=== PATIENT | female | born 1975 | race Caucasian/White ===

== ENCOUNTER → 2018-02-03 | Outpatient (CLI) | payer OTHER ==
[~2018-02-03] MED LIST: ALBU4 PO; Prednisone20 MG PO; SERT25 PO; Ultram50 MG PO; Veetids 500500 MG PO
== END ==
LOC: LAB SHORT 15:30 → LAB 15:30
PROVIDERS: Nurse Practitioner Family
DX: Z01.419 Encounter for gynecological examination (general) (routine) without abnormal findings (principal)
CPT/HCPCS: G0145

== ENCOUNTER → 2018-09-29 | Outpatient (CLI) | payer OTHER | END | disposition home or self-care (01) | LOC: LAB SHORT 07:12 → PLD 07:12 | DX: R87.810 Cervical high risk human papillomavirus (HPV) DNA test positive (principal); R87.612 Low grade squamous intraepithelial lesion on cytologic smear of cervix (LGSIL) | CPT/HCPCS: 88305 ==

== ENCOUNTER → 2019-10-27 | Outpatient (CLI) | payer OTHER ==
[2019-11-02 15:10] LABS: HPV 16 Negative (Negative); HPV 18 Negative (Negative); HPV OTHER HR TYPES Negative (Negative)
== END | disposition home or self-care (01) ==
LOC: LAB SHORT 09:00 → LAB 09:00
PROVIDERS: Nurse Practitioner Family
DX: R87.810 Cervical high risk human papillomavirus (HPV) DNA test positive (principal); Z87.42 Personal history of other diseases of the female genital tract
CPT/HCPCS: 87624; G0145

== ENCOUNTER → 2019-11-14 | Outpatient (CLI) | payer OTHER | LOC: LAB 13:33 → LAB SHORT 13:33 | DX: D51.8 Other vitamin B12 deficiency anemias (principal) | CPT/HCPCS: 82607; 82746 ==

== ENCOUNTER → 2019-12-26 | Outpatient (CLI) | payer OTHER | END | disposition home or self-care (01) | LOC: LAB EV 12:30 → LAB SHORT 12:30 | DX: J02.9 Acute pharyngitis, unspecified (principal) | CPT/HCPCS: 87081 ==

== ENCOUNTER 2020-11-18 17:00 | Emergency (ER) | payer OTHER ==
[~2020-11-18] VITALS: Ht 170.2 cm; Wt 91.6 kg
== END 2020-11-18 18:00 | disposition home or self-care (01) ==
LOC: ER 17:00
DX: M25.462 Effusion, left knee (principal); Z79.52 Long term (current) use of systemic steroids; Z79.899 Other long term (current) drug therapy; Z88.0 Allergy status to penicillin; Z88.8 Allergy status to other drugs, medicaments and biological substances
CPT/HCPCS: 73564; 99283-25; A9270-GY

== ENCOUNTER 2023-09-22 18:22 | Inpatient (IN) | payer OTHER ==
[~2023-09-22] VITALS: Ht 170.2 cm; Wt 96.6 kg
[2023-09-22 19:27] LABS: BASOPHILS ABSOLUTE AUTO 0.05 K/mm3 (0.00-0.23); BASOPHILS PERCENT AUTO 0 % (0-2); EOSINOPHILS ABSOLUTE AUTO 0.06 K/mm3 (0.00-0.68); EOSINOPHILS PERCENT AUTO 1 % (0-6); Hematocrit 38.5 % (33.0-51.0); Hemoglobin 11.8 g/dL (11.5-16.0); IMMATURE GRAN ABSOLUTE AUTO 0.05 K/mm3 (0.00-0.10); IMMATURE GRAN PERCENT AUTO 0 % (0-1); LYMPHOCYTES PERCENT AUTO 17 % (21-46); MONOCYTES ABSOLUTE AUTO 1.18 K/mm3 (0.16-1.47); MONOCYTES PERCENT AUTO 9 % (4-13); Mean Corpuscular HGB 26.8 pg (26.0-34.0); Mean Corpuscular HGB Conc 30.6 g/dL (31.5-36.5); Mean Corpuscular Volume 88 fL (80-100); Mean Platelet Volume 9.4 fL (9.1-12.4); NEUTROPHILS ABSOLUTE AUTO 9.55 K/mm3 (1.96-9.15); NEUTROPHILS PERCENT AUTO 73 % (41-73); Platelet Count 527 K/mm3 (150-400); RDW Coefficient Variation 15.6 % (11.7-14.2); RDW Standard Deviation 50.3 fL (35.1-46.3); White Blood Cell Count 13.09 K/mm3 (4.00-11.30)
[2023-09-22 19:48] LABS: Alanine Aminotransfer (ALT/SGP 18 U/L (12-78); Albumin/Globulin Ratio 0.6 (0.8-1.8); Alk Phos 95 U/L (50-136); Anion Gap Unable to Calculate mmol/L (6-16); Aspartate Aminotrans (AST/SGOT 8 U/L (12-37); Bilirubin, Total 0.2 mg/dL (0.1-1.0); Blood Urea Nitrogen 11 mg/dL (8-24); Bun/Creatinine Ratio 17.3 (12.0-20.0); CO2, Blood 31 mmol/L (21-32); Calcium, Blood 8.9 mg/dL (8.5-10.1); Chloride, Blood 110 mmol/L (98-108); Creatinine, Blood 0.64 mg/dL (0.40-1.00); Globulin, Blood 4.8 g/dL (2.2-4.0); Glomerular Filtration Rate 111 (60-); Glucose, Blood 103 mg/dL (70-99); Potassium, Blood 3.8 mmol/L (3.5-5.5); Sodium, Blood 140 mmol/L (136-145); Total Protein, Blood 7.8 g/dL (6.4-8.2)
[2023-09-22] MEDS ORDERED: Dexamethasone Sod Phos 10 MG/ML 1ML VIAL IV ONE (21:00)
[2023-09-22] MEDS ORDERED: FentaNYL Citrate 50 MCG/ML 2 ML Injection IV ONE (21:00)
[2023-09-22] MEDS ORDERED: Ondansetron HCl 2 MG / ML 2ML Vial IV ONE (21:00)
[2023-09-22] MEDS ORDERED: Benzocaine Oral Spray 0.5ML UD MT ONE (21:40)
[2023-09-22] MEDS ORDERED: Ampicillin Sod/Sulbactam Sod 3 GM in NS 100 ML IV ONE (21:45)
[2023-09-22] MEDS ORDERED: FLU VACC QS2023-24(6MOS UP)/PF 60 MCG/0.5 ML SYRINGE IM ONE (22:20)
[2023-09-22] MEDS ORDERED: Ondansetron HCl 2 MG / ML 2ML Vial IV PRN (22:25)
[2023-09-22] MEDS ORDERED: FentaNYL Citrate 50 MCG/ML 2 ML Injection IV PRN (22:25)
[2023-09-22] MEDS ORDERED: AMOX-CLAV 875-1 EAC5 PO (22:47)
[2023-09-22] MEDS ORDERED: Trazodone HCl300 MG PO (22:48)
[2023-09-22] MEDS ORDERED: ESCI20 PO (22:48)
[2023-09-22] MEDS ORDERED: NS 1,000 ML IV ONE (23:20)
[2023-09-23 00:30] VITALS: BP 146/95
[2023-09-23] MEDS ORDERED: TraZODone HCl 100 MG Tab PO ONE (00:50)
[2023-09-23] MEDS ORDERED: NS 100 ML IV ONE (01:22)
[2023-09-23] MEDS ORDERED: Piperacillin/Tazobactam Sod 4.5 GM in NS 100 ML IV SCH (02:00)
[2023-09-23 03:54] VITALS: BP 120/84
[2023-09-23 04:47] LABS: BASOPHILS ABSOLUTE AUTO 0.02 K/mm3 (0.00-0.23); BASOPHILS PERCENT AUTO 0 % (0-2); EOSINOPHILS PERCENT AUTO 0 % (0-6); Hematocrit 34.8 % (33.0-51.0); IMMATURE GRAN ABSOLUTE AUTO 0.06 K/mm3 (0.00-0.10); IMMATURE GRAN PERCENT AUTO 0 % (0-1); LYMPHOCYTES ABSOLUTE AUTO 0.98 K/mm3 (0.84-5.20); LYMPHOCYTES PERCENT AUTO 7 % (21-46); MONOCYTES ABSOLUTE AUTO 0.19 K/mm3 (0.16-1.47); MONOCYTES PERCENT AUTO 1 % (4-13); Mean Corpuscular HGB 27.1 pg (26.0-34.0); Mean Corpuscular HGB Conc 31.6 g/dL (31.5-36.5); Mean Corpuscular Volume 86 fL (80-100); Mean Platelet Volume 9.5 fL (9.1-12.4); NEUTROPHILS ABSOLUTE AUTO 12.56 K/mm3 (1.96-9.15); NEUTROPHILS PERCENT AUTO 91 % (41-73); Platelet Count 479 K/mm3 (150-400); RDW Coefficient Variation 15.5 % (11.7-14.2); RDW Standard Deviation 48.8 fL (35.1-46.3); Red Blood Cell Count 4.06 M/mm3 (3.80-5.20); White Blood Cell Count 13.81 K/mm3 (4.00-11.30)
[2023-09-23 05:12] LABS: Albumin, Blood 2.7 g/dL (3.4-5.0); Albumin/Globulin Ratio 0.6 (0.8-1.8); Bilirubin, Total 0.3 mg/dL (0.1-1.0); Bun/Creatinine Ratio 16.2 (12.0-20.0); Calcium, Blood 8.9 mg/dL (8.5-10.1); Creatinine, Blood 0.56 mg/dL (0.40-1.00); Globulin, Blood 4.5 g/dL (2.2-4.0); Potassium, Blood 4.4 mmol/L (3.5-5.5); Total Protein, Blood 7.2 g/dL (6.4-8.2)
--- NOTE | 2023-09-23 06:08 | NUR ---
Rn summary: Patient was admitted to room 302 from the ED. Patient is alert and oriented x4. Patient is here for Rt sided peritonsillar abscess/ strep which was needle aspirated in the ED for 9 ml of pus. Patient reports moderate relief afterward. Pt medicated x2 with fentanyl 50mcg with pain level from 9/10 to 4/10. Patient did rest for a couple of hours after trazadone 300mg given. Patient is independant in room. Is able to take sips of water. Meds were crushed in applesauce. Patient calls appropriately. vital signs are stable. Will continue to monitor.
[2023-09-23 07:16] VITALS: BP 130/86
[2023-09-23] MEDS ORDERED: Citalopram Hydrobromide 20 MG Tab PO SCH (09:00)
[2023-09-23] MEDS ORDERED: Acetaminophen 325 MG TABLET PO PRN (11:50)
[2023-09-23] MEDS ORDERED: Piperacillin/Tazobactam Sod 4.5 GM ONE (12:04)
[2023-09-23] MEDS ORDERED: Ventolin/Prove6.7 GM INH (12:27)
[2023-09-23] MEDS ORDERED: Albuterol HFA200 ACT/6.7 GM INH INH PRN (12:35)
[2023-09-23 16:03] VITALS: BP 134/94
--- NOTE | 2023-09-23 17:28 | NUR ---
SHIFT SUMMARY PT AOX4, INDEPENDENT IN THE ROOM. PAIN MANAGED PER THE EMAR. NO COMPLAINTS FROM THE PT THIS SHIFT OTHER THAN ABOUT PAIN. REPORT GIVEN TO ADRIAN LUU, THIS NURSE IS GOING HOME EARLY. CALL LIGHT WITHIN REACH, BED IN THE LOWEST POSITION. WILL REPORT TO ONCOMING NURSE.
--- NOTE | 2023-09-23 18:37 | NUR ---
End of shift note: Pt continues on the medical floor, recieving antibiotics throughout the shift. PRN Fentynl has been given ~q6/hr for pain which has been effective. PRN Tylenol has been effective for pain aswell. Pt was switched from NPO to soft diet after lunch. Pt alert and independent.
[2023-09-23 19:08] VITALS: BP 134/95
[2023-09-23] MEDS ORDERED: TraZODone HCl 100 MG Tab PO SCH (21:00)
--- NOTE | 2023-09-24 04:05 | NUR ---
PT A&O x4, VSS, AFEBRILE, PT ON RA. PT ADMITTED FOR ABSCESS LOCATED ON R SIDE OF TONSILS, PERITONSILLAR ABSCESS. PT PLEASANT AND COOPERATIVE WITH CARE PROVIDED. PT ABLE TO MAKE NEEDS KNOWN. PT UP AD CINDY, INDEPENDENT WITH ADL's. PT C/O PAIN TO R SIDE OF MOUTH. PAIN MANAGED WITH PRN IV FENTANYL ADMINISTERED x2. IV ABX HUNG. PT ABLE TO TOLERATE DINNER LAST NIGHT. NO C/O NAUSEA, NO DIFFICULTIES WITH BREATHING OR SWALLOWING. RESP RATE EVEN AND UNLABORED. MOUTH. PAIN MANAGED WITH PRN IV FENTANYL ADMINISTERED x2. IV ABX RUNNING. PT SLEPT ON AND OFF THROUGHOUT THE SHIFT. CALL LIGHT WITHIN REACH, WCTM.
[2023-09-24 04:14] VITALS: BP 125/84
[2023-09-24 05:22] LABS: BASOPHILS ABSOLUTE AUTO 0.05 K/mm3 (0.00-0.23); BASOPHILS PERCENT AUTO 1 % (0-2); EOSINOPHILS ABSOLUTE AUTO 0.15 K/mm3 (0.00-0.68); EOSINOPHILS PERCENT AUTO 2 % (0-6); IMMATURE GRAN ABSOLUTE AUTO 0.07 K/mm3 (0.00-0.10); IMMATURE GRAN PERCENT AUTO 1 % (0-1); LYMPHOCYTES PERCENT AUTO 30 % (21-46); MONOCYTES ABSOLUTE AUTO 0.75 K/mm3 (0.16-1.47); MONOCYTES PERCENT AUTO 8 % (4-13); Mean Corpuscular HGB Conc 31.3 g/dL (31.5-36.5); Mean Corpuscular Volume 86 fL (80-100); Mean Platelet Volume 9.8 fL (9.1-12.4); NEUTROPHILS ABSOLUTE AUTO 5.93 K/mm3 (1.96-9.15); NEUTROPHILS PERCENT AUTO 60 % (41-73); Platelet Count 471 K/mm3 (150-400); RDW Coefficient Variation 15.5 % (11.7-14.2); RDW Standard Deviation 48.9 fL (35.1-46.3); Red Blood Cell Count 3.71 M/mm3 (3.80-5.20); White Blood Cell Count 9.95 K/mm3 (4.00-11.30)
[2023-09-24 05:42] LABS: Bun/Creatinine Ratio 39.8 (12.0-20.0); Calcium, Blood 8.5 mg/dL (8.5-10.1); Creatinine, Blood 0.6 mg/dL (0.40-1.00); Potassium, Blood 3.8 mmol/L (3.5-5.5)
[2023-09-24 07:21] VITALS: BP 126/83
[2023-09-24] MEDS ORDERED: OxyCODONE HCL 5 MG TAB PO ONE (10:45)
--- NOTE | 2023-09-24 14:12 | NUR ---
DISCHARGE NOTE PT DISCHARGED TO HOME, PICKED UP BY HER MOTHER. IV REMOVED. DISCHARGE EDUCATION AND INFORMATION PROVIDED TO THE PT. MEDICATIONS FAXED TO THE PHARMACY OF HER CHOICE. PERSONAL BELONGINGS RETURNED.
== END 2023-09-24 13:17 | disposition home or self-care (01) | DRG 854 ==
LOC: ER 18:22 → MEDS 22:21 → ERHOLD 22:21 → MEDS 09-23 00:08 → ENPENDDIS 09-24 12:58 → MEDS 09-24 13:17
PROVIDERS: Internal Medicine; Student in an Organized Health Care Education/Training Program; ADMIT Internal Medicine
PROC: 0C9P3ZX Drainage of Tonsils, Percutaneous Approach, Diagnostic (ICD-10-PCS; principal; 2023-09-22)
PROC: 3E03329 Introduction of Other Anti-infective into Peripheral Vein, Percutaneous Approach (ICD-10-PCS; 2023-09-22)
DX: A41.9 Sepsis, unspecified organism (principal); J36 Peritonsillar abscess; D64.9 Anemia, unspecified; G47.30 Sleep apnea, unspecified; J45.909 Unspecified asthma, uncomplicated; Z79.899 Other long term (current) drug therapy; F90.9 Attention-deficit hyperactivity disorder, unspecified type; F31.9 Bipolar disorder, unspecified; E78.5 Hyperlipidemia, unspecified; F43.10 Post-traumatic stress disorder, unspecified; E53.8 Deficiency of other specified B group vitamins
CPT/HCPCS: 10160; 36415; 70491; 80048; 80053; 83880; 85025; 94640; 94664; 94760; 96365-59; 96375-59; 99284-25; A9270; J0295; J1100; J2405; J2543; J3010; J7030; Q9967

== ENCOUNTER 2024-06-09 08:47 | Emergency (ER) | payer OTHER ==
[~2024-06-09] VITALS: Ht 170.2 cm; Wt 86.6 kg
[~2024-06-09 08:47] MED LIST changes: +AMOX-CLAV 875-1 EAC5 PO; +ESCI20 PO; +Trazodone HCl300 MG PO; +Ventolin/Prove6.7 GM INH
[2024-06-09] MEDS ORDERED: Ketorolac Tromethamine 15mg Vial IV ONE (09:20)
[2024-06-09] MEDS ORDERED: Morphine Sulfate 4 MG/1 ML Injection IV ONE (09:45)
[2024-06-09] MEDS ORDERED: CefTRIAXone Sodium 2,000 MG in NS 100 ML IV ONE (09:50)
[2024-06-09] MEDS ORDERED: Benzocaine Oral Spray 0.5ML UD MT ONE (09:50)
[2024-06-09] MEDS ORDERED: Dexamethasone Sod Phos 10 MG/ML 1ML VIAL IV ONE (09:50)
[2024-06-09 10:05] LABS: BASOPHILS ABSOLUTE AUTO 0.06 K/mm3 (0.00-0.23); BASOPHILS PERCENT AUTO 0 % (0-2); EOSINOPHILS ABSOLUTE AUTO 0.09 K/mm3 (0.00-0.68); EOSINOPHILS PERCENT AUTO 1 % (0-6); Hematocrit 34.1 % (33.0-51.0); Hemoglobin 10.8 g/dL (11.5-16.0); IMMATURE GRAN ABSOLUTE AUTO 0.05 K/mm3 (0.00-0.10); IMMATURE GRAN PERCENT AUTO 0 % (0-1); LYMPHOCYTES ABSOLUTE AUTO 1.11 K/mm3 (0.84-5.20); LYMPHOCYTES PERCENT AUTO 8 % (21-46); MONOCYTES ABSOLUTE AUTO 1.37 K/mm3 (0.16-1.47); MONOCYTES PERCENT AUTO 9 % (4-13); Mean Corpuscular HGB 27.8 pg (26.0-34.0); Mean Corpuscular HGB Conc 31.7 g/dL (31.5-36.5); Mean Corpuscular Volume 88 fL (80-100); Mean Platelet Volume 10.1 fL (9.1-12.4); NEUTROPHILS ABSOLUTE AUTO 11.99 K/mm3 (1.96-9.15); NEUTROPHILS PERCENT AUTO 82 % (41-73); Platelet Count 336 K/mm3 (150-400); RDW Coefficient Variation 16.2 % (11.7-14.2); Red Blood Cell Count 3.89 M/mm3 (3.80-5.20); White Blood Cell Count 14.67 K/mm3 (4.00-11.30)
[2024-06-09] MEDS ORDERED: Ondansetron HCl 2 MG / ML 2ML Vial IV ONE (10:15)
[2024-06-09 10:26] LABS: Albumin, Blood 2.9 g/dL (3.4-5.0); Albumin/Globulin Ratio 0.7 (0.8-1.8); Bilirubin, Total 0.4 mg/dL (0.1-1.0); Bun/Creatinine Ratio 18.6 (12.0-20.0); C-REACTIVE PROTEIN, EXT RANGE 8.94 mg/dL (0.000-0.300); Calcium, Blood 8.4 mg/dL (8.5-10.1); Creatinine, Blood 0.59 mg/dL (0.40-1.00); Globulin, Blood 3.9 g/dL (2.2-4.0); Potassium, Blood 3.7 mmol/L (3.5-5.5); Total Protein, Blood 6.8 g/dL (6.4-8.2)
[2024-06-09] MEDS ORDERED: FentaNYL Citrate 50 MCG/ML 2 ML Injection IV ONE ×2 (13:05→14:50)
[2024-06-09] MEDS ORDERED: CLIN300 PO (14:29)
[2024-06-09] MEDS ORDERED: Percocet 5-3251 EACH PO ×2 (14:49→15:21)
[2024-06-09 15:26] VITALS: BP 157/92
== END 2024-06-09 15:26 | disposition home or self-care (01) ==
LOC: ER 08:47
PROVIDERS: Physician Assistant
DX: J36 Peritonsillar abscess (principal); J45.909 Unspecified asthma, uncomplicated; Z79.52 Long term (current) use of systemic steroids; Z79.899 Other long term (current) drug therapy
CPT/HCPCS: 42700; 70491; 80053; 85025; 86140; 96365-59; 96375-59; 96376-59; 99283-25; A9270; J0696; J1100; J1885; J2270; J2405; J3010; Q9967

== ENCOUNTER 2024-08-15 12:24 | Emergency (ER) | payer OTHER ==
[~2024-08-15] VITALS: Ht 170.2 cm; Wt 87.1 kg
[~2024-08-15 12:24] MED LIST changes: +CLIN300 PO; +Percocet 5-3251 EACH PO
[2024-08-15 13:24] LABS: BASOPHILS ABSOLUTE AUTO 0.08 K/mm3 (0.00-0.23); BASOPHILS PERCENT AUTO 1 % (0-2); EOSINOPHILS ABSOLUTE AUTO 0.09 K/mm3 (0.00-0.68); EOSINOPHILS PERCENT AUTO 1 % (0-6); Hemoglobin 10.9 g/dL (11.5-16.0); IMMATURE GRAN ABSOLUTE AUTO 0.05 K/mm3 (0.00-0.10); IMMATURE GRAN PERCENT AUTO 0 % (0-1); LYMPHOCYTES PERCENT AUTO 12 % (21-46); MONOCYTES ABSOLUTE AUTO 1.05 K/mm3 (0.16-1.47); MONOCYTES PERCENT AUTO 8 % (4-13); Mean Corpuscular HGB 26.8 pg (26.0-34.0); Mean Corpuscular HGB Conc 31.1 g/dL (31.5-36.5); Mean Corpuscular Volume 86 fL (80-100); Mean Platelet Volume 9.3 fL (9.1-12.4); NEUTROPHILS ABSOLUTE AUTO 9.66 K/mm3 (1.96-9.15); NEUTROPHILS PERCENT AUTO 78 % (41-73); Platelet Count 392 K/mm3 (150-400); RDW Coefficient Variation 16.5 % (11.7-14.2); RDW Standard Deviation 51.8 fL (35.1-46.3); Red Blood Cell Count 4.06 M/mm3 (3.80-5.20); White Blood Cell Count 12.43 K/mm3 (4.00-11.30)
[2024-08-15] MEDS ORDERED: Dexamethasone Sod Phos 10 MG/ML 1ML VIAL PO ONE (13:50)
[2024-08-15 13:58] LABS: Albumin, Blood 3.3 g/dL (3.4-5.0); Albumin/Globulin Ratio 0.8 (0.8-1.8); Bilirubin, Total 0.5 mg/dL (0.1-1.0); Creatinine, Blood 0.73 mg/dL (0.40-1.00); Globulin, Blood 4.3 g/dL (2.2-4.0); Potassium, Blood 4.1 mmol/L (3.5-5.5); Total Protein, Blood 7.6 g/dL (6.4-8.2)
[2024-08-15] MEDS ORDERED: Clindamycin 600mg in D5W 50 ML IV ONE (15:50)
[2024-08-15] MEDS ORDERED: Benzocaine Oral Spray 0.5ML UD MT ONE (15:50)
[2024-08-15] MEDS ORDERED: Morphine Sulfate 4 MG/1 ML Injection IV ONE ×2 (15:50→17:30)
[2024-08-15] MEDS ORDERED: CLIN300 PO (17:25)
[2024-08-15 18:13] VITALS: BP 143/82
== END 2024-08-15 18:10 | disposition home or self-care (01) ==
LOC: ER 12:24
PROVIDERS: Student in an Organized Health Care Education/Training Program
DX: J36 Peritonsillar abscess (principal); J45.909 Unspecified asthma, uncomplicated; Z79.899 Other long term (current) drug therapy
CPT/HCPCS: 70491; 80053; 85025; 96365-59; 96375; 96376; 99284-25; A9270; J1100; J2270; Q9967

== ENCOUNTER 2024-11-01 06:41 | Day surgery (SDC) | payer OTHER ==
[~2024-11-01] VITALS: Ht 170.2 cm; Wt 86.0 kg
[2024-11-01] MEDS ORDERED: Lactated Ringer's 1,000 ML IV ONE ×2 (07:33→07:45)
[2024-11-01] MEDS ORDERED: Bupivacaine 0.25% Epi 1:200000 30 ML Vial ONE (07:58)
[2024-11-01] MEDS ORDERED: Rocuronium Bromide 10 MG/ML 5ML Injection IV ONE (08:06)
[2024-11-01] MEDS ORDERED: Midazolam HCl 1MG / ML 2ML Vial ONE (08:09)
[2024-11-01] MEDS ORDERED: FentaNYL Citrate 50 MCG/ML 2 ML Injection ONE ×2 (08:09→09:01)
[2024-11-01] MEDS ORDERED: propofoL 20 ML IV ONE (08:09)
[2024-11-01] MEDS ORDERED: Ondansetron HCl 2 MG / ML 2ML Vial ONE (08:16)
[2024-11-01] MEDS ORDERED: Dexamethasone Sod Phos 10 MG/ML 1ML VIAL ONE ×2 (08:16→08:17)
[2024-11-01] MEDS ORDERED: Sugammadex Sodium 200 MG/2ML SDV (100 MG/ML) ONE (08:23)
[2024-11-01 09:35] VITALS: BP 137/94
--- NOTE | 2024-11-01 10:11 | NUR ---
11/01/24 1011 Yaneth Marc PT STATED THAT HER PAIN LEVEL WENT DOWN TO A 5/10. PRIOR TO ADMINISTERING IV FENTANYL, PAIN LEVEL WAS A 8/10. PT STATED THAT SHE WAS COMFORTABLE, AT HER TOLERABLE LEVEL FOR PAIN BEFORE GOING HOME. PT'S BOYFRIEND/PARTNER, GIO, AT SIDE OF RECLINER. ALL QUESTIONS ANSWERED, CONCERNS ADDRESSED. D/C INSTRUCTIONS GIVEN TO PT. PT INSTRUCTED THAT SHE IS ABLE TO TAKE PAIN MEDICATION WHENEVER SHE FEELS PAINFUL ONCE SHE GETS HOME FROM THE [facility]. VSS, PT CALM AND PLEASANT, COOPERATIVE WITH CARE.
== END 2024-11-01 09:55 | disposition home or self-care (01) ==
LOC: ORSCSDS 06:41
PROVIDERS: Otolaryngology
PROC: 0CBPXZZ Excision of Tonsils, External Approach (ICD-10-PCS; principal; 2024-11-01 08:15)
DX: J35.01 Chronic tonsillitis (principal); J45.909 Unspecified asthma, uncomplicated; K62.89 Other specified diseases of anus and rectum; Z98.84 Bariatric surgery status; Z87.891 Personal history of nicotine dependence; Z79.899 Other long term (current) drug therapy
CPT/HCPCS: 88304; J1100; J2250; J2405; J2704; J3010; J7120

== ENCOUNTER 2025-02-12 19:45 | Emergency (ER) | payer OTHER ==
[~2025-02-12] VITALS: Ht 170.2 cm; Wt 78.9 kg
[2025-02-12 19:55] VITALS: BP 147/106
[2025-02-12] MEDS ORDERED: DOXY100 PO (20:57)
[2025-02-12] MEDS ORDERED: IBUP600 PO (20:57)
[2025-02-12] MEDS ORDERED: CLIN300 PO (20:58)
== END 2025-02-12 21:08 | disposition home or self-care (01) ==
LOC: ER 19:45
DX: M71.121 Other infective bursitis, right elbow (principal)
CPT/HCPCS: 73080; 99283-25; A9270